=== PATIENT | male | born 1955 | race Caucasian/White ===

== ENCOUNTER 2018-06-03 17:11 | Inpatient (IN) | payer OTHER ==
[2018-06-03] VITALS (143 sets, daily range): BP systolic 127–195; BP diastolic 86–125; PULSE 68; TEMP 98.3; O2SAT 97–100
[~2018-06-03] VITALS: Ht 188 cm; Wt 97.4 kg
[2018-06-03 18:28] LABS: BASO % 0.6 % (0.0-2.0); EOS # 0.1 (0.0-0.7); EOS % 1.5 % (0-4.0); GRAN # 3.2 (1.4-6.5); GRAN % 60.9 % (42.2-75.2); HEMATOCRIT 41.1 % (42.0-52.0); HEMOGLOBIN 14.8 g/dl (13.5-18.0); LYMPH # 1.3 (1.2-3.4); LYMPH % 24.1 % (20.0-51.0); MEAN CELL VOLUME 93 fl (80.0-100.0); MEAN CORPUSCULAR HEMOGLOBIN 34 pg (27.0-31.0); MEAN CORPUSCULAR HGB CONC 36 g/dl (33.0-37.0); MEAN PLATELET VOLUME 10.8 fl (7.4-10.4); MONO # 0.7 (0.1-0.6); MONO % 12.5 % (1.7-9.3); PLATELET COUNT 70 K/mm3 (130-400); RED BLOOD COUNT 4.41 M/mm3 (4.20-5.60); REDCELL DISTRIBUTION WIDTH-CV 13.8 % (11.5-14.5)
[2018-06-03 18:40] LABS: INR 1.5 (0.8-3.0)
[2018-06-03 18:42] LABS: ALANINE AMINOTRANSFERASE 45 U/L (21-72); ALBUMIN 2.9 gm/dL (3.5-5.0); ALKALINE PHOSPHATASE 117 U/L (50-136); ANION GAP 7 mmol/L (7-16); AST,SGOT 61 U/L (15-37); BILIRUBIN,TOTAL 3.3 mg/dL (0.0-1.0); BLOOD UREA NITROGEN 9 mg/dL (9-20); C-REACTIVE PROTEIN 1.3 mg/dL (0.0-0.9); CALCIUM 8.1 mg/dL (8.4-10.2); CARBON DIOXIDE 26 mmol/L (22-30); CHLORIDE 105 mmol/L (98-107); GLUCOSE 138 mg/dL (74-106); LIPASE 201 U/L (23-300); MAGNESIUM 1.8 mg/dL (1.6-2.3); PHOSPHOROUS 2.5 mg/dL (2.5-4.5); POTASSIUM 3.9 mmol/L (3.4-5.0); SODIUM 139 mmol/L (137-145); TOTAL PROTEIN 6.6 gm/dL (6.4-8.2)
[2018-06-03 18:53] LABS: TROPONIN-I < 0.012 ng/mL (0.000-0.034)
[2018-06-03 19:23] LABS: COLLECTION METHOD CLEAN CATCH
[2018-06-03 19:29] LABS: MUCOUS Present /lpf; PH 7 (5-8); SQUAMOUS EPITHELIAL None Seen /hpf; URINE APPEARANCE Clear; URINE BACTERIA None Seen /hpf; URINE BILIRUBIN Negative (NEGATIVE); URINE BLOOD Negative (NEGATIVE); URINE COLOR Yellow; URINE GLUCOSE Negative (NEGATIVE); URINE KETONE Negative (NEGATIVE); URINE LEUKOCYTE ESTERASE Negative (NEGATIVE); URINE NITRATE Negative (NEGATIVE); URINE PROTEIN(semi-quant) 1+ (NEGATIVE); URINE UROBILINOGEN >=4.0 mg/dL (NEGATIVE)
[2018-06-03] MEDS ORDERED: KRISTALOSE10 GM/PACK PO (21:29)
[2018-06-03] MEDS ORDERED: INDERAL LA 60MG60 MG PO (21:37)
[2018-06-03] MEDS ORDERED: COREG 6.256.25 MG/TA (21:39)
[2018-06-03] MEDS ORDERED: VASOTEC20 MG PO (21:41)
[2018-06-03] MEDS ORDERED: OXAYDO5 MG PO (21:47)
[2018-06-03 23:57] LABS: ARTERIAL BLD GAS O2 SATURATION 97.1 % (92-100); ARTERIAL BLD GAS TCO2 CT 22.7; ARTERIAL BLOOD GAS BASE EXCESS -0.3 (-2-2); ARTERIAL BLOOD GAS HCO3 21.7 meq/L (22-26); ARTERIAL BLOOD GAS PCO2 29.6 mmHg (35-45); ARTERIAL BLOOD GAS PO2 101.8 mmHg (80-100); ARTERIAL BLOOD GAS pH 7.48 (7.35-7.45)
[2018-06-04] VITALS (671 sets, daily range): BP systolic 140–169; BP diastolic 87–125; PULSE 69–75; TEMP 97.7–98.6; O2SAT 92–100
[2018-06-04 03:41] LABS: CALCIUM 8.5 mg/dL (8.4-10.2); CREATININE, serum 0.57 mg/dL (0.66-1.25); MAGNESIUM 1.8 mg/dL (1.6-2.3); POTASSIUM 3.6 mmol/L (3.4-5.0)
[2018-06-04 06:16] LABS: BASO % 0.6 % (0.0-2.0); EOS # 0.1 (0.0-0.7); EOS % 1.4 % (0-4.0); GRAN # 4.6 (1.4-6.5); GRAN % 64.2 % (42.2-75.2); HEMATOCRIT 46.2 % (42.0-52.0); HEMOGLOBIN 16.6 g/dl (13.5-18.0); LYMPH # 1.5 (1.2-3.4); LYMPH % 20.3 % (20.0-51.0); MEAN CELL VOLUME 94 fl (80.0-100.0); MEAN CORPUSCULAR HEMOGLOBIN 34 pg (27.0-31.0); MEAN CORPUSCULAR HGB CONC 36 g/dl (33.0-37.0); MEAN PLATELET VOLUME 11.3 fl (7.4-10.4); MONO # 0.9 (0.1-0.6); MONO % 13.2 % (1.7-9.3); PLATELET COUNT 82 K/mm3 (130-400); RED BLOOD COUNT 4.93 M/mm3 (4.20-5.60); REDCELL DISTRIBUTION WIDTH-CV 14.2 % (11.5-14.5)
[2018-06-04 06:37] LABS: ALBUMIN 3.2 gm/dL (3.5-5.0); BILIRUBIN,TOTAL 4.4 mg/dL (0.0-1.0); CALCIUM 8.6 mg/dL (8.4-10.2); CREATININE, serum 0.59 mg/dL (0.66-1.25); POTASSIUM 3.8 mmol/L (3.4-5.0); TOTAL PROTEIN 7.3 gm/dL (6.4-8.2)
[2018-06-04] MEDS ORDERED: STIVARGA PO (10:18)
[2018-06-04] MEDS ORDERED: WELLBUTRIN XL300 M1 PO (14:39)
[2018-06-04] MEDS ORDERED: ALDACTONE 25MG25 M1 PO (14:39)
[2018-06-04] MEDS ORDERED: PRILOSEC 20MG20 MG PO (14:40)
[2018-06-04] MEDS ORDERED: LASIX 40MG TABL40 MG PO (14:40)
[2018-06-04] MEDS ORDERED: CATAPRES 0.1MG0.1 MG PO (14:41)
[2018-06-05 04:29] VITALS: BP 149/97; PULSE 81; TEMP 98
[2018-06-05 06:57] LABS: BASO # 0.1 (0.0-0.2); EOS # 0.2 (0.0-0.7); EOS % 2.3 % (0-4.0); GRAN # 4.1 (1.4-6.5); GRAN % 56.1 % (42.2-75.2); HEMATOCRIT 46.2 % (42.0-52.0); HEMOGLOBIN 16.5 g/dl (13.5-18.0); LYMPH # 1.9 (1.2-3.4); LYMPH % 26.1 % (20.0-51.0); MEAN CELL VOLUME 94 fl (80.0-100.0); MEAN CORPUSCULAR HEMOGLOBIN 34 pg (27.0-31.0); MEAN CORPUSCULAR HGB CONC 36 g/dl (33.0-37.0); MONO % 14.2 % (1.7-9.3); PLATELET COUNT 77 K/mm3 (130-400); REDCELL DISTRIBUTION WIDTH-CV 14.2 % (11.5-14.5)
[2018-06-05 07:12] LABS: ALBUMIN 3.2 gm/dL (3.5-5.0); BILIRUBIN,TOTAL 4.6 mg/dL (0.0-1.0); CALCIUM 8.3 mg/dL (8.4-10.2); CREATININE, serum 0.67 mg/dL (0.66-1.25); POTASSIUM 3.7 mmol/L (3.4-5.0)
[2018-06-05 08:55] VITALS: BP 122/81; PULSE 73; TEMP 97.4
[2018-06-05 12:43] VITALS: BP 114/80; PULSE 92; TEMP 97.9
[2018-06-05 16:31] VITALS: BP 145/90; PULSE 16; TEMP 97.6
[2018-06-05 17:08] LABS: FOLATE (FOLIC ACID) 9.9 ng/mL (7.0-31.4)
[2018-06-05 19:22] VITALS: BP 123/69; PULSE 64; TEMP 97.9
[2018-06-06 00:12] VITALS: BP 147/87; PULSE 58; TEMP 97.4
[2018-06-06 04:10] VITALS: BP 136/78; PULSE 62; TEMP 97.9
[2018-06-06 06:50] LABS: BASO % 0.4 % (0.0-2.0); EOS # 0.2 (0.0-0.7); EOS % 2.5 % (0-4.0); GRAN # 4.4 (1.4-6.5); GRAN % 60.2 % (42.2-75.2); HEMATOCRIT 42.2 % (42.0-52.0); HEMOGLOBIN 14.9 g/dl (13.5-18.0); LYMPH # 1.8 (1.2-3.4); LYMPH % 24.1 % (20.0-51.0); MEAN CELL VOLUME 96 fl (80.0-100.0); MEAN CORPUSCULAR HEMOGLOBIN 34 pg (27.0-31.0); MEAN CORPUSCULAR HGB CONC 35 g/dl (33.0-37.0); MEAN PLATELET VOLUME 11.4 fl (7.4-10.4); MONO # 0.9 (0.1-0.6); MONO % 12.5 % (1.7-9.3); PLATELET COUNT 72 K/mm3 (130-400); RED BLOOD COUNT 4.42 M/mm3 (4.20-5.60)
[2018-06-06 07:05] LABS: BILIRUBIN,DIRECT 0.3 mg/dL (0.0-0.4); BILIRUBIN,TOTAL 2.9 mg/dL (0.0-1.0); CALCIUM 8.3 mg/dL (8.4-10.2); CREATININE, serum 0.72 mg/dL (0.66-1.25); POTASSIUM 3.8 mmol/L (3.4-5.0); TOTAL PROTEIN 6.7 gm/dL (6.4-8.2)
[2018-06-06 07:51] VITALS: BP 116/83; PULSE 67; TEMP 98.5
== END 2018-06-06 11:30 | disposition home or self-care (01) | DRG 304 ==
LOC: COL.ER 17:11 → ICU 20:01 → MEDICAL 06-04 16:43 → ICU 06-04 16:43 → MEDICAL 06-04 16:44
PROVIDERS: Emergency Medicine; Internal Medicine; Nurse Practitioner Family; Physician Assistant
DX: I16.0 Hypertensive urgency (principal); K72.00 Acute and subacute hepatic failure without coma; C22.8 Malignant neoplasm of liver, primary, unspecified as to type; I67.4 Hypertensive encephalopathy; B18.2 Chronic viral hepatitis C; I10 Essential (primary) hypertension; D69.59 Other secondary thrombocytopenia; D32.0 Benign neoplasm of cerebral meninges
CPT/HCPCS: 99223-AI; 99233-AI; 99239; J7050